=== PATIENT | female | born 1995 | race Caucasian/White ===

== ENCOUNTER → 2018-05-17 | Outpatient (CLI) | payer OTHER ==
--- NOTE | 2018-05-17 15:42 | RADIOLOGY IMAGING REPORT ---
FACILITY: [facility] [place] PATIENT NAME: Madhu Cee : 1995 MR: [id number] V: [id number] EXAM DATE: ORDERING PHYSICIAN: GANESH CARLISLE TECHNOLOGIST: Location: [facility] [place] Patient: Madhu Cee : 1995 Visit/Account:[id number] Date of Sevice: 05/17/2018 MRI left knee Indication: Knee pain Comparison: None available. Technique: Multiplanar, multisequence MRI examination is performed of the left knee without contrast. Findings: Medial compartment: No discrete tear of the medial meniscus. The articular cartilage surfaces are unremarkable. Lateral compartment: No discrete tear of the lateral meniscus. The articular cartilage surfaces are unremarkable. Patellofemoral compartment: Minimal chondral irregularity median ridge patella cartilage with no full-thickness chondral defect. Bones and marrow: No acute or aggressive osseous abnormality visualized bones of the left knee. Ligaments and tendons: ACL and PCL are intact. The extensor mechanism is intact. Minimal edema superficial to proximal MCL could represent mild sprain The iliotibial band, biceps femoris tendon, and the fibular collateral ligament is intact The popliteus tendon is also intact. Soft tissues: There is a small amount of fluid within the suprapatellar bursa. IMPRESSION: 1. 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 2. No acute osseous abnormality. 3. Question mild sprain proximal MCL. Report Dictated By: Chele Finney MD at 05/17/2018 2:45 PM Report E-Signed By: Chele Finney MD at 05/17/2018 3:38 PM WSN:[id number]
== END ==
LOC: EDBD 10:38 → MRI 10:38
PROVIDERS: ATTEND Emergency Medicine Sports Medicine
DX: M94.262 Chondromalacia, left knee (principal)